=== PATIENT | female | born 1960 | race Native Hawaiian/Other Pacific Islander ===

== ENCOUNTER 2018-01-30 19:40 | Emergency (ER) | payer OTHER ==
[~2018-01-30] VITALS: Ht 162.6 cm; Wt 103.4 kg
[~2018-01-30 19:40] MED LIST: AMANTADINE100 MG PO; ASCO500T18 PO; BENADRYL25 M1 PO; BENZ1TAB43 PO; CETI10TA PO; CLON1TAB18 PO; DIVA500T2 PO; LEXAPRO10 MG PO; MULTIVITAMI1 PO; PANT40TA PO; PHEN100C15 PO; POTASSIUM CHLO20 ME1 PO; SENNA-LAX8.6 MG PO; SINGULAIR10 MG PO; TEMA15CA19 PO; TRAM50TA PO; ZIPR80CA PO
[2018-01-30 20:08] LABS: PLATELET COUNT 146 K/uL (152-353)
[2018-01-30 20:14] LABS: POTASSIUM 3.6 mmol/L (3.6-5.2); SODIUM 135 mmol/L (136-145)
[2018-01-30 20:56] VITALS: BP 145/96; TEMP 98.1
[2018-01-30] MEDS ORDERED: DIVA250T2 PO (22:35)
[2018-01-30] MEDS ORDERED: FURO20TA67 PO (22:35)
[2018-01-30] MEDS ORDERED: HALO50IN4 IM (22:36)
[2018-01-30] MEDS ORDERED: OMEPRAZOLE20 M1 PO (22:37)
[2018-01-30] MEDS ORDERED: CLON1TAB18 PO (22:37)
[2018-01-30] MEDS ORDERED: DOCU100C10 PO (22:38)
[2018-01-30] MEDS ORDERED: HYDR10TA51 PO (22:39)
[2018-01-30] MEDS ORDERED: DIVA500T2 PO (22:40)
[2018-01-30] MEDS ORDERED: PHEN50CH2 PO (22:41)
[2018-01-30] MEDS ORDERED: TRAZ100T PO (22:42)
[2018-01-30] MEDS ORDERED: CETI10TA PO (22:44)
[2018-01-30] MEDS ORDERED: DIPH50CA30 PO (22:46)
[2018-01-30] MEDS ORDERED: PERCOCET1 TA3 PO (22:46)
[2018-01-30] MEDS ORDERED: TRAM50TA PO (22:47)
[2018-01-30] MEDS ORDERED: MAPAP325 MG PO (22:48)
== END 2018-01-30 20:58 | disposition other institution (70) ==
LOC: ED 19:40
PROVIDERS: Internal Medicine
DX: F31.89 Other bipolar disorder (principal); F32.89 Other specified depressive episodes; K59.09 Other constipation; B19.20 Unspecified viral hepatitis C without hepatic coma; Z04.6 Encounter for general psychiatric examination, requested by authority
CPT/HCPCS: 36415; 74022; 80053; 80307; 80320; 80329; 81000; 85027; 93005; 99285

== ENCOUNTER 2018-04-12 18:03 | Emergency (ER) | payer OTHER ==
[~2018-04-12] VITALS: Ht 162.6 cm; Wt 90.7 kg
[~2018-04-12 18:03] MED LIST changes: +DIPH50CA30 PO; +DIVA250T2 PO; +DOCU100C10 PO; +FURO20TA67 PO; +HALO50IN4 IM; +HYDR10TA51 PO; +MAPAP325 MG PO; +OMEPRAZOLE20 M1 PO; +PERCOCET1 TA3 PO; +PHEN50CH2 PO; +TRAZ100T PO
[2018-04-12 18:40] LABS: PLATELET COUNT 116 K/uL (152-353)
[2018-04-12 18:44] LABS: POTASSIUM 3.4 mmol/L (3.6-5.2)
[2018-04-12 19:07] VITALS: BP 124/75; TEMP 98.8
[2018-04-12] MEDS ORDERED: METAMUCIL0.52 GM PO (22:31)
[2018-04-12] MEDS ORDERED: FLUOXETINE20 MG PO (22:34)
[2018-04-12] MEDS ORDERED: TRAZ100T OR (22:35)
[2018-04-12] MEDS ORDERED: ZIPR20CA PO (22:36)
[2018-04-12] MEDS ORDERED: DIVALPROEX500 M1 PO (22:38)
[2018-04-12] MEDS ORDERED: MONTELUKAST SOD10 MG PO (22:38)
[2018-04-12] MEDS ORDERED: DOCU100C10 PO (22:39)
[2018-04-12] MEDS ORDERED: LORA2INJ21 INJ (22:46)
[2018-04-12] MEDS ORDERED: MILK OF MAGNESI1 SU1 PO (22:48)
[2018-04-12] MEDS ORDERED: ALUMSUS6 PO (22:48)
[2018-04-12] MEDS ORDERED: PHENERGAN12.5 MG PR (22:50)
[2018-04-12] MEDS ORDERED: PROVENTIL IN (22:52)
[2018-04-19] MEDS ORDERED: DULO30CA PO (08:29)
[2018-04-19] MEDS ORDERED: MAGN400T4 PO (08:29)
[2018-04-19] MEDS ORDERED: ZIPR80CA PO (08:30)
[2018-04-19] MEDS ORDERED: BUSP5TAB2 PO (08:30)
[2018-05-15] MEDS ORDERED: CITRUCEL500 MG PO (22:44)
[2018-05-21] MEDS ORDERED: TRAZ50TA36 PO (13:40)
[2018-05-21] MEDS ORDERED: HYDR10TA51 PO (13:40)
[2018-05-21] MEDS ORDERED: NICOTINE T14 MG/24 H TD (13:40)
[2018-05-21] MEDS ORDERED: LITH300C3 PO (13:40)
[2018-05-21] MEDS ORDERED: ARIPIPRAZOLE10 MG PO (13:40)
[2018-05-21] MEDS ORDERED: MULTTAB52 PO (13:40)
[2018-05-21] MEDS ORDERED: DULO30CA PO (13:40)
[2018-05-21] MEDS ORDERED: FOLI1TAB26 PO (13:40)
[2018-05-21] MEDS ORDERED: NITR100C56 PO (13:40)
== END 2018-04-12 19:08 | disposition other institution (70) ==
LOC: ED 18:03
DX: R45.851 Suicidal ideations (principal); J44.9 Chronic obstructive pulmonary disease, unspecified; Z04.6 Encounter for general psychiatric examination, requested by authority
CPT/HCPCS: 80053; 81000; 83735; 84100; 85027; 93005; 99285

== ENCOUNTER 2018-10-04 18:45 | Emergency (ER) | payer OTHER ==
[~2018-10-04] VITALS: Ht 165.1 cm; Wt 83.5 kg
[~2018-10-04 18:45] MED LIST changes: +ALUMSUS6 PO; +ARIPIPRAZOLE10 MG PO; +BUSP5TAB2 PO; +CITRUCEL500 MG PO; +DIVALPROEX500 M1 PO; +DULO30CA PO; +FLUOXETINE20 MG PO; +FOLI1TAB26 PO; +LITH300C3 PO; +LORA2INJ21 INJ; +MAGN400T4 PO; +METAMUCIL0.52 GM PO; +MILK OF MAGNESI1 SU1 PO; +MONTELUKAST SOD10 MG PO; +MULTTAB52 PO; +NICOTINE T14 MG/24 H TD; +NITR100C56 PO; +PHENERGAN12.5 MG PR; +PROVENTIL IN; +TRAZ100T OR; +TRAZ50TA36 PO; +ZIPR20CA PO
[2018-10-04 18:54] VITALS: BP 134/85; TEMP 97.5
[2018-10-04 19:32] LABS: PLATELET COUNT 137 K/uL (152-353); POTASSIUM 4.1 mmol/L (3.6-5.2)
[2018-10-05] MEDS ORDERED: DULO60CA2 PO (03:33)
[2018-10-05] MEDS ORDERED: DIVA500T2 PO (03:36)
[2018-10-05] MEDS ORDERED: DULO30CA PO (03:37)
[2018-10-05] MEDS ORDERED: PANTOPRAZOLE 40MG TA PO (03:38)
[2018-10-05] MEDS ORDERED: ASCO500T18 PO (03:39)
[2018-10-05] MEDS ORDERED: DOCU100C10 PO (03:41)
[2018-10-05] MEDS ORDERED: POTASSIUM CL PO (03:45)
[2018-10-05] MEDS ORDERED: MONT10TA PO (03:46)
[2018-10-05] MEDS ORDERED: DILANTIN PO (03:48)
[2018-10-05] MEDS ORDERED: MILK OF MAGNESI1 SU1 PO (03:50)
[2018-10-05] MEDS ORDERED: BUSPIRONE10 MG PO (03:52)
[2018-10-05] MEDS ORDERED: ALBUTEROL0.083 % INH (03:55)
[2018-10-05] MEDS ORDERED: LACTSYP31 PO (03:56)
== END 2018-10-04 20:35 | disposition other institution (70) ==
LOC: ED 18:48
PROVIDERS: Family Medicine
DX: Z00.8 Encounter for other general examination (principal); F28 Other psychotic disorder not due to a substance or known physiological condition; F20.89 Other schizophrenia; J44.9 Chronic obstructive pulmonary disease, unspecified; G40.89 Other seizures; K21.9 Gastro-esophageal reflux disease without esophagitis; B18.2 Chronic viral hepatitis C
CPT/HCPCS: 36415; 80053; 85027; 93005; 99285

== ENCOUNTER 2019-01-17 20:03 | Emergency (ER) | payer OTHER ==
[~2019-01-17] VITALS: Ht 163.8 cm; Wt 87.5 kg
[~2019-01-17 20:03] MED LIST changes: +ALBUTEROL0.083 % INH; +BUSPIRONE10 MG PO; +DICL1GEL2 TOP; +DILANTIN PO; +DIVALPROEX500 MG PO; +DULO60CA2 PO; +LACTSYP31 PO; +MIRALAX 17GM PAK PO; +MONT10TA PO; +PANTOPRAZOLE 40MG TA PO; +POTA20TA4 PO; +POTASSIUM CL PO; +PRAZOSIN HCL1 MG PO; +TRAMADOL HYDROC50 MG PO; +TYLENOL325 MG PO; +VITAMIN D50000 UNIT PO
[2019-01-17 20:42] LABS: PLATELET COUNT 188 K/uL (152-353)
[2019-01-17 20:53] LABS: POTASSIUM 4.1 mmol/L (3.6-5.2)
[2019-01-17 22:08] VITALS: BP 153/80; TEMP 98.5
[2019-01-17] MEDS ORDERED: VITAMIN D22000 UNIT PO (23:06)
[2019-01-17] MEDS ORDERED: HALO50IN4 IM (23:07)
[2019-01-17] MEDS ORDERED: PANTOPRAZOLE 40MG TA PO (23:08)
[2019-01-17] MEDS ORDERED: DIVA500T2 PO (23:09)
[2019-01-17] MEDS ORDERED: POLYETH GLYC3350 N1 PO (23:10)
[2019-01-17] MEDS ORDERED: ASCO500T18 PO (23:10)
[2019-01-17] MEDS ORDERED: FLUTMIS6 INH (23:11)
[2019-01-17] MEDS ORDERED: DULO60CA2 PO (23:12)
[2019-01-17] MEDS ORDERED: DOCU100C10 PO (23:12)
[2019-01-17] MEDS ORDERED: GENERLAC10 GM/15 M PO (23:13)
[2019-01-17] MEDS ORDERED: LITH300C3 PO (23:14)
[2019-01-17] MEDS ORDERED: POTASSIUM CHLO20 ME2 PO (23:15)
[2019-01-17] MEDS ORDERED: BACLOFEN10 MG PO (23:16)
[2019-01-17] MEDS ORDERED: MONT10TA PO (23:17)
[2019-01-17] MEDS ORDERED: PHENYTOIN EX100 MG PO (23:18)
[2019-01-17] MEDS ORDERED: PRAZOSIN HCL1 MG PO (23:19)
[2019-01-17] MEDS ORDERED: HYDROXYZINE HYD25 MG PO (23:20)
[2019-01-17] MEDS ORDERED: TYLENOL325 M1 PO (23:20)
[2019-01-17] MEDS ORDERED: IBU400 MG PO (23:21)
[2019-01-17] MEDS ORDERED: DIPH25CA90 PO (23:22)
== END 2019-01-17 22:08 | disposition home or self-care (01) ==
LOC: ED 20:03
PROVIDERS: Emergency Medicine
DX: B37.9 Candidiasis, unspecified (principal); F20.9 Schizophrenia, unspecified; L03.116 Cellulitis of left lower limb; L03.115 Cellulitis of right lower limb; Z04.6 Encounter for general psychiatric examination, requested by authority
CPT/HCPCS: 36415; 80053; 81000; 85027; 93005; 99285

== ENCOUNTER 2019-01-30 19:36 | Emergency (ER) | payer OTHER ==
[~2019-01-30] VITALS: Ht 162.6 cm; Wt 96.6 kg
[~2019-01-30 19:36] MED LIST changes: +BACLOFEN10 MG PO; +CHOL100034 PO; +CLINDAMYCIN HC150 MG PO; +DIPH25CA90 PO; +FLUTMIS6 INH; +GENERLAC10 GM/15 M PO; +HYDROXYZINE HYD25 MG PO; +IBU400 MG PO; +NAC 600600 MG PO; +NICODERM C14 MG/241 TD; +PHENYTOIN EX100 MG PO; +POLYETH GLYC3350 N1 PO; +POTASSIUM CHLO20 ME2 PO; +TYLENOL325 M1 PO; +VITAMIN D22000 UNIT PO
[2019-01-30 19:47] VITALS: BP 140/69; TEMP 99.1
[2019-01-30 20:06] LABS: PLATELET COUNT 192 K/uL (152-353)
[2019-01-30 20:16] LABS: POTASSIUM 3.8 mmol/L (3.6-5.2)
== END 2019-01-30 20:48 | disposition other institution (70) ==
LOC: ED 19:36
PROVIDERS: Emergency Medicine
DX: F28 Other psychotic disorder not due to a substance or known physiological condition (principal)
CPT/HCPCS: 36415; 80053; 81000; 85027; 93005; 99285

== ENCOUNTER 2020-06-08 18:35 | Emergency (ER) | payer OTHER ==
[~2020-06-08] VITALS: Ht 162.6 cm; Wt 83.9 kg
[~2020-06-08 18:35] MED LIST changes: +NICOTINE T14 MG/241 TD
[2020-06-08 19:25] LABS: PLATELET COUNT 84 K/uL (152-353)
[2020-06-08 19:43] LABS: POTASSIUM 3.4 mmol/L (3.6-5.2)
[2020-06-08 20:45] VITALS: BP 110/51; TEMP 97.8
[2020-06-09] MEDS ORDERED: KP FOLIC ACID1 MG PO (01:22)
[2020-06-09] MEDS ORDERED: ALLEGRA ALRG180 M1 PO (01:22)
[2020-06-09] MEDS ORDERED: HALO5TAB10 PO ×2 (01:24→01:39)
[2020-06-09] MEDS ORDERED: MIRALAX3350 N1 PO (01:24)
[2020-06-09] MEDS ORDERED: THERA-M PO (01:25)
[2020-06-09] MEDS ORDERED: DIVALPROEX500 M1 PO (01:26)
[2020-06-09] MEDS ORDERED: PEPCID40 MG PO (01:27)
[2020-06-09] MEDS ORDERED: VITAMIN C1000 MG PO (01:27)
[2020-06-09] MEDS ORDERED: ORAZINC220 MG PO (01:28)
[2020-06-09] MEDS ORDERED: HYDROXYZINE HYD25 MG PO (01:31)
[2020-06-09] MEDS ORDERED: LACTULOSE10 GM/15 M PO (01:31)
[2020-06-09] MEDS ORDERED: MELATONIN3 M2 PO (01:32)
[2020-06-09] MEDS ORDERED: PRAZOSIN HCL1 MG PO (01:33)
[2020-06-09] MEDS ORDERED: TRAZ100T PO (01:34)
[2020-06-09] MEDS ORDERED: VISINE TEAR1 OPTH (01:35)
[2020-06-09] MEDS ORDERED: TYLENOL325 MG PO (01:35)
[2020-06-09] MEDS ORDERED: PROAIR HFA INH (01:37)
== END 2020-06-08 20:45 | disposition still patient (30) ==
LOC: ED 18:35
PROVIDERS: Hospitalist
DX: F25.8 Other schizoaffective disorders (principal); F32.89 Other specified depressive episodes; R45.851 Suicidal ideations; Z11.59 Encounter for screening for other viral diseases; Z04.6 Encounter for general psychiatric examination, requested by authority
CPT/HCPCS: 36415; 80053; 80164; 85027; 87635; 93005; 99283; 99285; U0003

== ENCOUNTER 2020-06-25 19:03 | Emergency (ER) | payer OTHER ==
[~2020-06-25] VITALS: Ht 162.6 cm; Wt 85.7 kg
[~2020-06-25 19:03] MED LIST changes: +ALLEGRA ALRG180 M1 PO; +FLUO10CA2 PO; +HALO5TAB10 PO; +KP FOLIC ACID1 MG PO; +LACTULOSE10 GM/15 M PO; +MELATONIN3 M2 PO; +METH4TAB6 PO; +MIRALAX3350 N1 PO; +OLAN2.5T2 PO; +ORAZINC220 MG PO; +PEPCID40 MG PO; +PROAIR HFA INH; +THERA-M PO; +VISINE TEAR1 OPTH; +VITAMIN C1000 MG PO
[2020-06-25 19:48] LABS: PLATELET COUNT 102 K/uL (152-353)
[2020-06-25 19:53] LABS: POTASSIUM 3.4 mmol/L (3.6-5.2)
[2020-06-25 20:26] VITALS: BP 164/83; TEMP 98.1
[2020-06-26] MEDS ORDERED: FLUOXETINE10 M1 PO (01:50)
[2020-06-26] MEDS ORDERED: OLANZAPINE2.5 MG PO (01:55)
== END 2020-06-25 20:28 | disposition still patient (30) ==
LOC: ED 19:03
PROVIDERS: Hospitalist
DX: R45.851 Suicidal ideations (principal); F20.89 Other schizophrenia; X83.8XXA Intentional self-harm by other specified means, initial encounter; Z11.59 Encounter for screening for other viral diseases; Z04.6 Encounter for general psychiatric examination, requested by authority; Y92.89 Other specified places as the place of occurrence of the external cause
CPT/HCPCS: 36415; 80053; 80164; 81000; 85027; 87077; 87086; 87088; 87186; 87635; 93005; 96372; 99285; J1200; J1630; U0003

== ENCOUNTER 2020-10-19 20:23 | Emergency (ER) | payer OTHER ==
[~2020-10-19] VITALS: Ht 162.6 cm; Wt 79.4 kg
[~2020-10-19 20:23] MED LIST changes: +DIVA250T PO; +DIVALPROEX250 M1 PO; +FLUOXETINE10 M1 PO; +OLANZAPINE2.5 MG PO; +PROAIR HFA PO; +PROAIR HFA108 MCG/AC INH; -VISINE TEAR1 OPTH; +VISINE TEARS; +ZINC GLUCON50 MG PO
[2020-10-19 21:06] LABS: PLATELET COUNT 152 K/uL (152-353)
[2020-10-19 21:14] LABS: POTASSIUM 3.7 mmol/L (3.6-5.2)
[2020-10-19 21:51] VITALS: BP 117/76; TEMP 98.6
[2020-10-19] MEDS ORDERED: DIVALPROEX250 M1 PO (23:32)
[2020-10-19] MEDS ORDERED: FLUOXETINE20 MG PO (23:33)
[2020-10-19] MEDS ORDERED: LACTSYP31 PO (23:34)
[2020-10-27] MEDS ORDERED: HALO5TAB10 PO (09:48)
[2020-10-27] MEDS ORDERED: FLUOXETINE20 MG PO (09:49)
[2020-11-24] MEDS ORDERED: NITR100C56 PO (02:26)
[2020-11-24] MEDS ORDERED: HALO5TAB10 PO (02:27)
[2020-11-24] MEDS ORDERED: ZYPREXA ZYDI15 MG PO (02:28)
[2020-11-30] MEDS ORDERED: MIRALAX 17GM PAK PO (08:59)
[2020-11-30] MEDS ORDERED: PRAZOSIN HCL1 MG PO (08:59)
[2020-11-30] MEDS ORDERED: ZINC220C4 PO (08:59)
[2020-11-30] MEDS ORDERED: MELATONIN MAXIMU5 MG PO (09:00)
[2020-11-30] MEDS ORDERED: MAGNSUS68 PO (09:00)
[2020-11-30] MEDS ORDERED: FOLI1TAB26 PO (09:02)
[2020-11-30] MEDS ORDERED: LACTSYP31 PO (09:02)
[2020-11-30] MEDS ORDERED: NITR100C56 PO (09:02)
[2020-11-30] MEDS ORDERED: DIVA250T PO (09:03)
[2020-11-30] MEDS ORDERED: FAMOTIDINE20 MG PO (09:03)
[2020-11-30] MEDS ORDERED: CLOZ100T PO (09:03)
[2020-11-30] MEDS ORDERED: FLUOXETINE20 MG PO (09:03)
[2020-11-30] MEDS ORDERED: ACET-206 PO (09:04)
[2020-11-30] MEDS ORDERED: ALBU90AE13 INH (09:04)
[2020-11-30] MEDS ORDERED: ASCO500T18 PO (09:04)
== END 2020-10-19 21:54 | disposition still patient (30) ==
LOC: ED 20:23
PROVIDERS: Emergency Medicine Emergency Medical Services
DX: R45.851 Suicidal ideations (principal); Z11.59 Encounter for screening for other viral diseases; Z04.6 Encounter for general psychiatric examination, requested by authority; M54.89 Other dorsalgia; X78.1XXA Intentional self-harm by knife, initial encounter; Y92.128 Other place in nursing home as the place of occurrence of the external cause
CPT/HCPCS: 36415; 80053; 81000; 85027; 87077; 87086; 87088; 87186; 87635; 93005; 99283; 99285; U0003

== ENCOUNTER 2020-11-23 19:35 | Emergency (ER) | payer OTHER ==
[~2020-11-23] VITALS: Ht 162.6 cm; Wt 80.3 kg
[2020-11-23 19:35] VITALS: BP 102/64; TEMP 99.8
[2020-11-23 20:10] LABS: PLATELET COUNT 114 K/uL (152-353)
[2020-11-23 20:42] LABS: POTASSIUM 4.5 mmol/L (3.6-5.2)
[2020-11-24] MEDS ORDERED: NITR100C56 PO (02:26)
[2020-11-24] MEDS ORDERED: HALO5TAB10 PO (02:27)
[2020-11-24] MEDS ORDERED: ZYPREXA ZYDI15 MG PO (02:28)
[2020-11-30] MEDS ORDERED: MIRALAX 17GM PAK PO (08:59)
[2020-11-30] MEDS ORDERED: ZINC220C4 PO (08:59)
[2020-11-30] MEDS ORDERED: PRAZOSIN HCL1 MG PO (08:59)
[2020-11-30] MEDS ORDERED: MELATONIN MAXIMU5 MG PO (09:00)
[2020-11-30] MEDS ORDERED: MAGNSUS68 PO (09:00)
[2020-11-30] MEDS ORDERED: NITR100C56 PO (09:02)
[2020-11-30] MEDS ORDERED: FOLI1TAB26 PO (09:02)
[2020-11-30] MEDS ORDERED: LACTSYP31 PO (09:02)
[2020-11-30] MEDS ORDERED: FAMOTIDINE20 MG PO (09:03)
[2020-11-30] MEDS ORDERED: FLUOXETINE20 MG PO (09:03)
[2020-11-30] MEDS ORDERED: CLOZ100T PO (09:03)
[2020-11-30] MEDS ORDERED: DIVA250T PO (09:03)
[2020-11-30] MEDS ORDERED: ACET-206 PO (09:04)
[2020-11-30] MEDS ORDERED: ASCO500T18 PO (09:04)
[2020-11-30] MEDS ORDERED: ALBU90AE13 INH (09:04)
== END 2020-11-23 21:31 | disposition still patient (30) ==
LOC: ED 19:35
PROVIDERS: Hospitalist
DX: F20.89 Other schizophrenia (principal); R45.851 Suicidal ideations; F32.89 Other specified depressive episodes; F03.91 Unspecified dementia, unspecified severity, with behavioral disturbance; S60.811A Abrasion of right wrist, initial encounter; Z11.59 Encounter for screening for other viral diseases; Z04.6 Encounter for general psychiatric examination, requested by authority; X83.8XXA Intentional self-harm by other specified means, initial encounter; Y92.89 Other specified places as the place of occurrence of the external cause
CPT/HCPCS: 36415; 80053; 81000; 85027; 87086; 87088; 87635; 93005; 99285; U0003